=== PATIENT | female | born 1955 | race Caucasian/White ===

== ENCOUNTER 2019-01-20 22:06 | Emergency (ER) | payer BC ==
[2019-01-21] MEDS ORDERED: Tetracaine 0.5% OPTH.SOL 4 ML* 1 DROP BTL RIGHT EYE ONE (00:37)
[2019-01-21] MEDS ORDERED: Fluorescein Sodium TOPICAL* 1 MG TEST STRIP OPHTHALMIC ONE (00:37)
--- NOTE | 2019-01-21 01:20 | ED ---
Throat Pain/Nasal Congestion - HPI Summary HPI Summary: 63-year-old female presents for irritation to the right eye. States she had picked up some odor absorbing pellets that had fallen out of their container earlier this evening then accidentally touched her her right shortly afterward. Noted burning to the eye with erythema. She had her irrigate the eye first with a copious amount of tap water then again using a saline eye rinse prior to arrival. States she no longer has any discomfort in the eye but continues to have some mild redness and wanted to make sure there was no injury to the eye. Denies visual disturbances, photophobia, or eye drainage. - History of Current Complaint Chief Complaint: EDEyeProblem Time Seen by Provider: 01/21/19 00:02 Hx Obtained From: Patient - Allergies/Home Medications Allergies/Adverse Reactions: Allergies Allergy/AdvReac Type Severity Reaction Status Date / Time Penicillins Allergy Hives Verified 01/20/19 22:12 Sulfa (Sulfonamide Allergy Hives Verified 01/20/19 22:12 Antibiotics) PMH/Surg Hx/FS Hx/Imm Hx Cardiovascular History: Reports: Hx Hypercholesterolemia GI History: Reports: Hx Gastroesophageal Reflux Disease - Cancer History Hx Chemotherapy: No Hx Radiation Therapy: No - Immunization History Date of Tetanus Vaccine: within 5 years Infectious Disease History: No Infectious Disease History: Denies: Traveled Outside the [place] in Last 30 Days - Family History Known Family History: Positive: Diabetes - Social History Occupation: Employed Full-time Lives: With Family Alcohol Use: None Substance Use Type: Reports: None Smoking Status (MU): Never Smoked Tobacco Review of Systems Constitutional: Negative Positive: Erythema. Negative: Photophobia, Blurred Vision, Diplopia, Drainage ENT: Negative Cardiovascular: Negative Respiratory: Negative Gastrointestinal: Negative Genitourinary: Negative Musculoskeletal: Negative Skin: Negative Neurological: Negative All Other Systems Reviewed And Are Negative: Yes Physical Exam - Summary Physical Exam Summary: GENERAL APPEARANCE: Well developed, well nourished, alert and cooperative, and appears to be in no acute distress. EYES: Mild conjunctival erythema to the right eye. Left eye normal. No drainage. PERRL, EOM intact. Vision is grossly intact. Tetracaine and fluorosceine were instilled into the right eye and exam performed under magnification using Wood's lamp. No stain uptake, corneal abrasion, or penetrating injury noted. CARDIAC: Normal S1 and S2. No S3, S4 or murmurs. Rhythm is regular. There is no peripheral edema, cyanosis or pallor. Extremities are warm and well perfused. Capillary refill is less than 2 seconds. Peripheral pulses intact. LUNGS: Clear to auscultation without rales, rhonchi, wheezing or diminished breath sounds. ABDOMEN: Positive bowel sounds. Soft, nondistended, nontender. No guarding or rebound. No masses or hepatosplenomegally. MUSKULOSKELETAL: ROM intact to all extremities. No joint erythema or tenderness. Normal muscular development. Normal gait. SKIN: Skin normal color, texture and turgor with no lesions or eruptions. Triage Information Reviewed: Yes Vital Signs On Initial Exam: Initial Vitals Temp Pulse Resp BP Pulse Ox 99.8 F 83 16 131/70 98 01/20/19 22:08 01/20/19 22:08 01/20/19 22:08 01/20/19 22:08 01/20/19 22:08 Vital Signs Reviewed: Yes Diagnostics - Vital Signs Vital Signs Temp Pulse Resp BP Pulse Ox 01/20/19 22:08 99.8 F 83 16 131/70 98 - Laboratory Lab Statement: Any lab studies that have been ordered have been reviewed, and results considered in the medical decision making process. EENT Course/Dx - Course Course Of Treatment: 63-year-old female presents for irritation to the right eye. States she had picked up some odor absorbing pellets that had fallen out of their container earlier this evening then accidentally touched her her right shortly afterward. Noted burning to the eye with erythema. She had her irrigate the eye first with a copious amount of tap water then again using a saline eye rinse prior to arrival. States she no longer has any discomfort in the eye but continues to have some mild redness and wanted to make sure there was no injury to the eye. Denies visual disturbances, photophobia, or eye drainage. Afebrile. VSS. Exam was overall unremarkable except for some mild conjuctival erythema of the right eye. Visual accuity normal. Recommending OTC analgesics for pain/discomfort. She is to follow up with ophthalmology in 3 days if symptoms persist. Anticipatory guidance and warning symptoms were reviewed with patient. Verbalizes understanding and agrees with POC. - Differential Diagnoses Differential Diagnoses: Conjunctivitis, Corneal Abrasion, Keratitis, Other - chemical burn - Diagnoses Provider Diagnoses: Irritation of right eye Discharge - Sign-Out/Discharge Documenting (check all that apply): Patient Departure Patient Received Moderate/Deep Sedation with Procedure: No - Discharge Plan Condition: Stable Disposition: HOME Patient Education Materials: [facility] (ED) Referrals: Lolsi Franks NP [Primary Care Provider] - Mario Rodriguez MD [Medical Doctor] - 3 Days Additional Instructions: Your eye exam in the emergency room was normal. There was no indication of an eye injury. Take acetaminophen (Tylenol) or ibuprofen (Advil, Motrin) according to directions as needed for pain. Follow up with Dr. Rodriguez, ophthalmology, if your symptoms persist. Seek immediate medical attention in the emergency room if you have severe eye pain, visual disturbances, loss of vision, swelling of the eye, or any worsening of symptoms. - Billing Disposition and Condition Condition: STABLE Disposition: Home
[2019-01-21 01:42] VITALS: BP 129/79
== END 2019-01-21 01:41 | disposition home or self-care (01) ==
LOC: ED 22:06
DX: H57.9 Unspecified disorder of eye and adnexa (principal); E78.00 Pure hypercholesterolemia, unspecified; K21.9 Gastro-esophageal reflux disease without esophagitis
CPT/HCPCS: 99282; A9270-GY

== ENCOUNTER 2019-07-02 07:11 | Emergency (ER) | payer BC ==
--- NOTE | 2019-07-02 08:10 | ED ---
Respiratory - HPI Summary HPI Summary: Pt. is a 63 y.o female who presents to the ER for worsening productive cough. Pt. notes she has been dealing with a cough for several weeks. Recently she has noticed blood in her sputum and SOB that is worse with lying flat. Pt. denies hx of pulmonary disease. She does not smoke. Pt. denies fever, cp, abd. pain, leg swelling. Past medical hx of GERD, anemia and obesity. Sxs are moderate in severity. No current modifying factors. - History of Current Complaint Chief Complaint: EDUpperRespComplaint Stated Complaint: COUGHED UP BLOOD PER PT Time Seen by Provider: 07/02/19 07:57 Hx Obtained From: Patient Pain Intensity: 0 - Allergy/Home Medications Allergies/Adverse Reactions: Allergies Allergy/AdvReac Type Severity Reaction Status Date / Time Penicillins Allergy Hives Verified 07/02/19 07:17 Sulfa (Sulfonamide Allergy Hives Verified 07/02/19 07:17 Antibiotics) PMH/Surg Hx/FS Hx/Imm Hx Previously Healthy: Yes Cardiovascular History: Reports: Hx Hypercholesterolemia GI History: Reports: Hx Gastroesophageal Reflux Disease - Cancer History Hx Chemotherapy: No Hx Radiation Therapy: No - Immunization History Date of Tetanus Vaccine: within 5 years Infectious Disease History: No Infectious Disease History: Denies: Traveled Outside the [place] in Last 30 Days - Family History Known Family History: Positive: Diabetes - Social History Occupation: Retired Lives: With Family Alcohol Use: None Substance Use Type: Reports: None Smoking Status (MU): Never Smoked Tobacco Review of Systems Constitutional: Negative Negative: Fever, Chills ENT: Negative Positive: Chest Pain Positive: Shortness Of Breath, Cough Gastrointestinal: Negative Negative: Abdominal Pain Genitourinary: Negative Negative: dysuria Musculoskeletal: Negative Negative: Edema Neurological: Negative All Other Systems Reviewed And Are Negative: Yes Physical Exam Triage Information Reviewed: Yes Vital Signs On Initial Exam: Initial Vitals Temp Pulse Resp BP Pulse Ox 98.1 F 80 16 144/89 98 07/02/19 07:13 07/02/19 07:13 07/02/19 07:13 07/02/19 07:13 07/02/19 07:13 Vital Signs Reviewed: Yes Appearance: Positive: Well-Appearing - Pt. sitting up in bed in NAD. SO present. Skin: Positive: Warm, Dry Head/Face: Positive: Normal Head/Face Inspection Eyes: Positive: Normal, EOMI, ALIZE, Conjunctiva Clear ENT: Positive: Pharynx normal, TMs normal Neck: Positive: Supple Respiratory/Lung Sounds: Positive: Clear to Auscultation, Breath Sounds Present. Negative: Rales, Rhonchi, Wheezes Cardiovascular: Positive: Normal, RRR Abdomen Description: Positive: Nontender, Soft Musculoskeletal: Negative: Edema Left, Edema Right Neurological: Positive: Normal, CN Intact II-III Psychiatric: Positive: Affect/Mood Appropriate Procedures - Sedation Patient Received Moderate/Deep Sedation with Procedure: No Diagnostics - Vital Signs Vital Signs Temp Pulse Resp BP Pulse Ox 07/02/19 08:00 74 98 07/02/19 07:39 78 98 07/02/19 07:13 98.1 F 80 16 144/89 98 - Laboratory Result Diagrams: 07/02/19 08:22 07/02/19 08:21 Lab Statement: Any lab studies that have been ordered have been reviewed, and results considered in the medical decision making process. Disposition - Course Course Of Treatment: Pt. with worsening cough, hemoptysis, and SOB. She is afebrile with stable VS. Exam relatively unremarkable. ECG done at 08 shows a sinus rhythm of 72bpm, nomral axis, no STEMI, uncharged from prior tracing. Labs show chronic anemia. DDimer obtained given sob and hemoptysis and was elevated. CTA ordered to r.o PE. CTA per radiology: IMPRESSION: 1. No pulmonary embolism is identified. 2. 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 3. Groundglass mosaicism and tree-in-bud opacification of the left upper and lower lobes. is likely reflective of infectious/ inflammatory bronchiolitis and/or aspiration. pneumonitis. Results discussed with pt. Will tx for with zithromax for opacification seen on CTA. Advised pt. to call pcp tomorrow for close f.u and further evaluation of ongoing sxs. Pt. understands and agrees with plan. - Differential Dx - Cardiopulmonary Differential Diagnoses - Cardiopulmonary: Acute Coronary, Asthma, Bronchitis, CHF, Lower Resp Infection, Pulmonary Embolism - Diagnoses Provider Diagnoses: Hemoptysis, Chronic cough Discharge ED - Sign-Out/Discharge Documenting (check all that apply): Patient Departure - Discharge Plan Condition: Good Disposition: HOME Prescriptions: Azithromycin TAB* [Zithromax TAB (Z-NATACHA) 250 mg #6 tabs] 2 tab PO .TODAY, THEN 1 DAILY #1 natacha Benzonatate CAP* [Tessalon 100 MG CAP*] 100 mg PO TID #9 cap Patient Education Materials: Chronic Cough (ED) Referrals: Lolis Franks NP [Nurse Practitioner] - Additional Instructions: Call your PCP tomorrow to schedule a close follow up appointment with PCP Take medication as directed Return to ER if symptoms change or worsen - Billing Disposition and Condition Condition: GOOD Disposition: Home
[2019-07-02 08:37] LABS: ABS Eosinophils 0.1 10^3/ul (0-0.6); ABS Lymphocytes 1.1 10^3/ul (1.0-4.8); ABS Monocytes 0.4 10^3/ul (0-0.8); Eosinophil % 0.9 %; Hematocrit 32 % (35-47); Hemoglobin 10.1 g/dL (12.0-16.0); Lymphocyte % 14.8 %; Mean Corpuscular HGB Conc 31 g/dL (31-36); Mean Corpuscular Hemoglobin 21 pg (27-31); Mean Corpuscular Volume 67 fL (80-97); Mean Platelet Volume 8.3 fL (7.4-10.4); Platelet Count 243 10^3/uL (150-450); Red Blood Count 4.84 10^6 /uL (3.70-4.87); Red Cell Distribution Width 19 % (10-15); White Blood Count 7.5 10^3/uL (3.5-10.8)
[2019-07-02 08:49] LABS: Albumin/Globulin Ratio 1.2 (1-3); BUN/Creatinine Ratio 19.5 (8-20); Calcium 9.3 mg/dL (8.6-10.3); EGFR African American 85.8 (>60); EGFR Non-African American 70.9 (>60); Globulin 3.4 g/dL (2-4); Potassium 4.5 mmol/L (3.5-5.0); Total Bilirubin 0.7 mg/dL (0.2-1.0); Total Protein 7.4 g/dL (6.4-8.9)
[2019-07-02] MEDS ORDERED: Iohexol 350* (CONTRAST) 500 ML MDV IV ONE (10:23)
--- NOTE | 2019-07-02 12:01 | ED ---
Progress - Progress Note Progress Note: US IV Ultrasound Guided Peripheral IV Procedure Note Indication: Unable to obtain adequate IV access Skin Prep:Chlorhexidine Sterile Prep (allowed to dry for thirty seconds) Sterility: Gloves Insertion: Appropriate time out was taken. Ultrasound guidance was utilized for vein selection, to document selected vessel patency and real time ultrasound visualization of vascular needle entry into venous lumen. Insertion Site: L AC Type of catheter: 18 gauge catheter Blood return:yes Saline lock: yes Post Procedure: Estimated blood loss: minimal Course/Dx - Course Course Of Treatment: ECG done at 0823 shows a sinus rhythm of 72bpm, nomral axis , no STEMI, uncharged from prior tracing. - Diagnoses Provider Diagnoses: Hemoptysis Discharge ED - Sign-Out/Discharge Documenting (check all that apply): Patient Departure - Discharge Plan Condition: Good Disposition: HOME Patient Education Materials: Chronic Cough (ED) Referrals: Lolis Franks NP [Primary Care Provider] - Additional Instructions: Call your PCP tomorrow to schedule a close follow up appointment with PCP Increase fluids and rest Tessalon pearls as directed for cough Return to ER if symptoms change or worsen - Billing Disposition and Condition Condition: GOOD Disposition: Home
[2019-07-02 13:02] VITALS: BP 112/91
== END 2019-07-02 13:07 | disposition home or self-care (01) ==
LOC: ED 07:11
DX: R04.2 Hemoptysis (principal); E78.00 Pure hypercholesterolemia, unspecified; K21.9 Gastro-esophageal reflux disease without esophagitis; K44.9 Diaphragmatic hernia without obstruction or gangrene; Z88.0 Allergy status to penicillin; Z88.2 Allergy status to sulfonamides
CPT/HCPCS: 36415; 71046; 71275; 80053; 83880; 84484; 85025; 85379; 93005; 99284; Q9967

== ENCOUNTER 2020-08-07 15:57 | Observation (INO) ==
[2020-08-07 19:12] LABS: INR 1.1 (0.82-1.09)
[2020-08-07 19:30] LABS: ALT 27 U/L (7-52); Albumin 3.9 g/dL (3.2-5.2); Albumin/Globulin Ratio 1.1 (1-3); Alkaline Phosphatase 131 U/L (34-104); BUN/Creatinine Ratio 22.4 (8-20); Blood Urea Nitrogen 17 mg/dL (6-24); CO2 Carbon Dioxide 25 mmol/L (22-32); Calcium 9.5 mg/dL (8.6-10.3); Chloride 103 mmol/L (101-111); EGFR African American 93.3 (>60); EGFR Non-African American 77.1 (>60); Globulin 3.4 g/dL (2-4); Glucose 94 mg/dL (70-100); Lipase 25 U/L (11.0-82.0); Sodium 135 mmol/L (135-145); Total Protein 7.3 g/dL (6.4-8.9)
[2020-08-07 19:48] LABS: ABS Basophils 0.1 10^3/ul (0-0.2); ABS Eosinophils 0.3 10^3/ul (0-0.6); ABS Lymphocytes 2.5 10^3/ul (1.0-4.8); ABS Monocytes 0.6 10^3/ul (0-0.8); ABS Neutrophils 4.6 10^3/ul (1.5-7.7); Eosinophil % 3.3 %; Hematocrit 41 % (35-47); Hemoglobin 13.3 g/dL (12.0-16.0); Lymphocyte % 31.2 %; Mean Corpuscular HGB Conc 32 g/dL (31-36); Mean Corpuscular Hemoglobin 28 pg (27-31); Mean Corpuscular Volume 85 fL (80-97); Platelet Count 321 10^3/uL (150-450); Red Blood Count 4.82 10^6 /uL (3.70-4.87); Red Cell Distribution Width 13 % (10-15); White Blood Count 8.1 10^3/uL (3.5-10.8)
[2020-08-07 19:58] LABS: Anion Gap 7 mmol/L (2-11)
[2020-08-07] MEDS ORDERED: Iohexol 300 (CONTRAST) 10 ML SDV IV ONE (20:09)
[2020-08-07 21:20] LABS: Urine Appearance Clear; Urine Bilirubin Negative (Negative); Urine Blood Negative (Negative); Urine Color Yellow; Urine Glucose Negative (Negative); Urine Ketones Negative (Negative); Urine Nitrite Negative (Negative); Urine Protein Negative (Negative); Urine Specific Gravity 1.011 (1.010-1.030); Urine Urobilinogen Negative (Negative)
[2020-08-07 21:30] LABS: Potassium Redraw 4.1 mmol/L (3.5-5.0)
[2020-08-07] MEDS ORDERED: Al Hydrox/Mg Hydrox/Simet LIQ 30 ML UDC PO ONE (23:52)
[2020-08-08] MEDS ORDERED: Pantoprazole VIAL 40 MG VIAL IV ONE (00:09)
[2020-08-08 05:57] LABS: ABS Eosinophils 0.1 10^3/ul (0-0.6); ABS Lymphocytes 1.1 10^3/ul (1.0-4.8); ABS Monocytes 0.3 10^3/ul (0-0.8); ABS Neutrophils 2.3 10^3/ul (1.5-7.7); Eosinophil % 3.4 %; Hematocrit 37 % (35-47); Hemoglobin 12.2 g/dL (12.0-16.0); Lymphocyte % 28.2 %; Mean Corpuscular HGB Conc 33 g/dL (31-36); Mean Corpuscular Hemoglobin 28 pg (27-31); Mean Corpuscular Volume 85 fL (80-97); Mean Platelet Volume 8.3 fL (7.4-10.4); Platelet Count 274 10^3/uL (150-450); Red Blood Count 4.42 10^6 /uL (3.70-4.87); Red Cell Distribution Width 13 % (10-15); White Blood Count 3.7 10^3/uL (3.5-10.8)
[2020-08-08 06:15] LABS: BUN/Creatinine Ratio 18.9 (8-20); EGFR African American 96.2 (>60); EGFR Non-African American 79.5 (>60); Potassium 4.4 mmol/L (3.5-5.0)
[2020-08-08] MEDS: Pantoprazole VIAL 40 MG VIAL IV SCH ×2 (08:54→22:16)
[2020-08-09] MEDS: Pantoprazole VIAL 40 MG VIAL IV SCH (08:55)
[2020-08-09] MEDS ORDERED: Midazolam 10 mg/10 ml VIAL 1 mg/ml 10 ml VIAL (10 mg) ONE (13:03)
[2020-08-09] MEDS ORDERED: fentaNYL 100 mcg/2 ml 50 MCG/ML VIAL ONE (13:03)
[2020-08-09 14:38] VITALS: BP 120/58
== END 2020-08-09 16:18 | disposition home or self-care (01) ==
LOC: ED 15:57 → SSU 15:57
PROVIDERS: ADMIT Internal Medicine; ATTEND Internal Medicine